=== PATIENT | male | born 1935 | race Caucasian/White ===

== ENCOUNTER 2017-11-05 00:40 | Emergency (ER) | payer MEDICARE ==
[~2017-11-05] VITALS: Ht 175.3 cm; Wt 62.0 kg
[~2017-11-05 00:40] MED LIST: ASPI81TA82 PO; CALA240T PO; MAXZTAB PO; META48.53 PO; OCUVTAB PO; OMPR20CCR PO; PROS5TAB2 PO; SIMV20TA PO
[2017-11-05 00:50] VITALS: BP 142/80; PULSE 95; RESP 18; TEMP 97.8; O2SAT 99
[2017-11-05 03:02] LABS: AUTOMATED NEUTROPHIL # 8.5 TH/MM3 (1.8-7.7); BASOPHIL # 0.1 TH/MM3 (0-0.2); BASOPHIL % 0.7 % (0.0-2.0); EOSINOPHIL % 0.2 % (0.0-4.0); HEMATOCRIT 33.3 % (39.0-51.0); LYMPH % 12.1 % (9.0-44.0); LYMPHOCYTE # 1.2 TH/MM3 (1.0-4.8); MEAN CELL VOLUME 92.1 FL (80.0-100.0); MEAN CORPUSCULAR HEMOGLOBIN 30.4 PG (27.0-34.0); MEAN PLATELET VOLUME 7.4 FL (7.0-11.0); MONO % 4.8 % (0.0-8.0); MONOCYTE # 0.5 TH/MM3 (0-0.9); NEUT % 82.2 % (16.0-70.0); PLATELET COUNT 291 TH/MM3 (150-450); RED BLOOD COUNT 3.62 MIL/MM3 (4.50-5.90); RED CELL DISTRIBUTION WIDTH 14.5 % (11.6-17.2); WHITE BLOOD COUNT 10.3 TH/MM3 (4.0-11.0)
[2017-11-05 03:22] LABS: CHLORIDE 112 MEQ/L (98-107); SODIUM (NA) 142 MEQ/L (136-145)
[2017-11-05 03:25] LABS: ALBUMIN 3.5 GM/DL (3.4-5.0); BICARBONATE 24.1 MEQ/L (21.0-32.0); CALCIUM 8.7 MG/DL (8.5-10.1); GLUCOSE,RANDOM 87 MG/DL (74-106)
[2017-11-05 03:26] LABS: BLOOD UREA NITROGEN 19 MG/DL (7-18); INTERNATIONAL NORMALIZED RATIO 1.1 RATIO
[2017-11-05 03:29] LABS: ALT (GPT) 16 U/L (12-78); AST (GOT) 17 U/L (15-37); GLOMERULAR FILTRATION RATE 72 ML/MIN (>89)
[2017-11-05 03:30] LABS: TOTAL BILIRUBIN ADULT 0.6 MG/DL (0.2-1.0); TOTAL PROTEIN 7.2 GM/DL (6.4-8.2)
[2017-11-05 03:32] LABS: ALKALINE PHOSPHATASE 68 U/L (45-117)
[2017-11-05] MEDS ORDERED: TRIA37.5 (04:04)
[2017-11-05] MEDS ORDERED: VERA1TAB17 PO (04:04)
[2017-11-05] MEDS ORDERED: ASPI81TA23 PO (04:04)
[2017-11-05] MEDS ORDERED: SIMV20TA PO (04:04)
[2017-11-05] MEDS ORDERED: LOSA50TA PO (04:04)
[2017-11-05] MEDS ORDERED: BLOOD THINNER (04:04)
--- NOTE | 2017-11-05 04:33 | PD ---
HPI Chief Complaint: Complaint Time Seen by Provider: 02:19 Travel History International Travel<30 days: No Contact w/Intl Traveler<30days: No Traveled to known affect area: No History of Present Illness HPI Patient is an 81-year-old male who comes in complaining of inability to urinate. He had a prostate procedure performed on Tuesday. He says he went back Tuesday because he was unable to urinate had a Mallory catheter placed, taken out the next day, and has been urinating fine since then. He says this evening, this happened suddenly. He is on some type of blood thinner, he is not sure what it is after having a stent placed in his right leg. He denies abdominal pain, nausea, vomiting, fever. He says he was just uncomfortable because he was unable to pee. Severity is mild. PFSH Past Medical History Cancer: No Cardiovascular Problems: Yes Diabetes: No Diminished Hearing: No Endocrine: No Genitourinary: Yes (11/01/17 UROLIFT) Hepatitis: No Hypertension: Yes Immune Disorder: No Medical other: Yes (RIGHT LEG STENT) Musculoskeletal: Yes (BACK ) Neurologic: No Respiratory: No Thyroid Disease: No Influenza Vaccination: Yes Past Surgical History Abdominal Surgery: Yes (LEFT HERNIA REPAIR ) Cardiac Surgery: No Endocrine Surgery: No Eye Surgery: Yes (BILATERAL CAT SX ) Oral Surgery: Yes (LARYNOSCOPY ) Thoracic Surgery: No Other Surgery: Yes Social History Alcohol Use: Yes (SOCIALLY) Tobacco Use: Yes (1.5 PPD) Substance Use: No Allergies-Medications (Allergen,Severity, Reaction): Coded Allergies: No Known Allergies (Unverified , 11/05/17) Reported Meds & Prescriptions Reported Meds & Active Scripts Active Reported [Blood Thinner] DAILY Simvastatin 20 Mg Tab 20 Mg PO DAILY Verapamil ER 24 HR (Verapamil HCl) 240 Mg Tab 240 Mg PO HS Triamterene-Hydrochlorothiazide 37.5-25 Mg Tab 1 Tab DAILY Aspirin EC (Aspirin) 81 Mg Tabdr 81 Mg PO DAILY Losartan (Losartan Potassium) 50 Mg Tab 50 Mg PO DAILY Review of Systems Except as stated in HPI: all other systems reviewed are Neg General / Constitutional: No: Fever, Chills HENT: No: Headaches, Lightheadedness Cardiovascular: No: Chest Pain or Discomfort Respiratory: No: Shortness of Breath Genitourinary: Positive: Hematuria Musculoskeletal: No: Myalgias Skin: No Rash, No Change in Pigmentation Neurologic: No: Weakness, Dizziness Physical Exam Narrative GENERAL: Awake and alert, no acute distress. SKIN: Focused skin assessment warm/dry. No wounds or signs of infection. HEAD: Atraumatic. Normocephalic. EYES: Pupils equal and round. No scleral icterus. ENT: Mucous membranes pink and moist. NECK: Trachea midline. No JVD. CARDIOVASCULAR: Regular rate and rhythm. No murmur appreciated. RESPIRATORY: No accessory muscle use. Clear to auscultation. Breath sounds equal bilaterally. GASTROINTESTINAL: Abdomen soft, non-tender, nondistended. MUSCULOSKELETAL: No obvious deformities. No clubbing. No cyanosis. No edema. NEUROLOGICAL: Awake and alert. No obvious cranial nerve deficits. Motor grossly within normal limits. Normal speech. PSYCHIATRIC: Appropriate mood and affect; insight and judgment normal. Data Data Last Documented VS Vital Signs Date Time Temp Pulse Resp B/P (MAP) Pulse Ox O2 Delivery O2 Flow Rate FiO2 11/05/17 04:36 86 20 160/84 (109) 98 11/05/17 00:50 97.8 Orders Orders Iv Access Insert/Monitor (11/05/17 02:36) Complete Blood Count With Diff (11/05/17 02:36) Comprehensive Metabolic Panel (11/05/17 02:36) Act Partial Throm Time (Ptt) (11/05/17 02:36) Prothrombin Time / Inr (Pt) (11/05/17 02:36) Bladder/Catheter Irrigation (11/05/17 04:04) Ed Discharge Order (11/05/17 04:43) Labs Laboratory Tests Test 11/05/17 02:45 White Blood Count 10.3 TH/MM3 Red Blood Count 3.62 MIL/MM3 Hemoglobin 11.0 GM/DL Hematocrit 33.3 % Mean Corpuscular Volume 92.1 FL Mean Corpuscular Hemoglobin 30.4 PG Mean Corpuscular Hemoglobin Concent 33.0 % Red Cell Distribution Width 14.5 % Platelet Count 291 TH/MM3 Mean Platelet Volume 7.4 FL Neutrophils (%) (Auto) 82.2 % Lymphocytes (%) (Auto) 12.1 % Monocytes (%) (Auto) 4.8 % Eosinophils (%) (Auto) 0.2 % Basophils (%) (Auto) 0.7 % Neutrophils # (Auto) 8.5 TH/MM3 Lymphocytes # (Auto) 1.2 TH/MM3 Monocytes # (Auto) 0.5 TH/MM3 Eosinophils # (Auto) 0.0 TH/MM3 Basophils # (Auto) 0.1 TH/MM3 CBC Comment AUTO DIFF Differential Comment AUTO DIFF CONFIRMED Platelet Estimate NORMAL Platelet Morphology Comment NORMAL Red Cell Morphology Comment NORMAL Prothrombin Time 11.0 SEC Prothromb Time International Ratio 1.1 RATIO Activated Partial Thromboplast Time 30.3 SEC Blood Urea Nitrogen 19 MG/DL Creatinine 1.00 MG/DL Random Glucose 87 MG/DL Total Protein 7.2 GM/DL Albumin 3.5 GM/DL Calcium Level 8.7 MG/DL Alkaline Phosphatase 68 U/L Aspartate Amino Transf (AST/SGOT) 17 U/L Alanine Aminotransferase (ALT/SGPT) 16 U/L Total Bilirubin 0.6 MG/DL Sodium Level 142 MEQ/L Potassium Level 3.6 MEQ/L Chloride Level 112 MEQ/L Carbon Dioxide Level 24.1 MEQ/L Anion Gap 6 MEQ/L Estimat Glomerular Filtration Rate 72 ML/MIN [facility] Medical Decision Making Medical Screen Exam Complete: Yes Emergency Medical Condition: Yes Medical Record Reviewed: Yes Differential Diagnosis Hematuria versus obstruction versus coagulopathy Narrative Course Patient is an 81-year-old male who comes in complaining of inability to urinate. Mallory catheter placed with large blood clots coming from his bladder. Bladder was irrigated and patient started to produce clear urine. Labs sent show hemoglobin within normal limits. PT and INR within normal limits. PTT is slightly elevated. Patient will be discharged with Mallory catheter in place. Advised follow-up with urology. Advised to return to the ED as needed for any worsening symptoms. Diagnosis Primary Impression: Urinary obstruction Additional Impression: Hematuria Qualified Codes: R31.0 - Gross hematuria Patient Instructions: General Instructions, Hematuria (ED), Urinary Retention in Men (ED) Additional Instructions: Follow up with urology. Return to the ED as needed for any worsening symptoms. Disposition: 01 DISCHARGE HOME Condition: Stable Sophia Resendiz MD Nov 05, 2017 04:33
[2017-11-05 04:36] VITALS: BP 160/84
== END 2017-11-05 04:52 | disposition home or self-care (01) ==
LOC: PHED 00:40
DX: N13.9 Obstructive and reflux uropathy, unspecified (principal); R31.9 Hematuria, unspecified; I10 Essential (primary) hypertension; F17.200 Nicotine dependence, unspecified, uncomplicated; Z79.82 Long term (current) use of aspirin; Z79.899 Other long term (current) drug therapy
CPT/HCPCS: 51702; 80053; 85025; 85610; 85730